=== PATIENT | female | born 2000 | race African-American/Black ===

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

== ENCOUNTER 2021-08-14 19:01 | Emergency (ER) | payer SELFPAY ==
[~2021-08-14] VITALS: Ht 152.4 cm; Wt 54.5 kg
[~2021-08-14 19:01] MED LIST changes: +PENI500T PO
[2021-08-14 20:20] VITALS: BP 127/62
[2021-08-14] MEDS: DEXAMETHASONE 4 MG TABLET PO ONE (21:25)
--- NOTE | 2021-08-14 21:36 | PHYS DOC ---
Past Medical History Past Medical History: No Pertinent History Past Surgical History: No Surgical History Smoking Status: Never Smoker Alcohol Use: None Drug Use: None General Adult EDM: Chief Complaint: OTHER COMPLAINTS HPI: HPI: Patient is a 20 year old female who presents with right neck lymph nodes pres ent for the last 2 days with a slightly sore throat. Patient denies fever, other recent illness, nausea, vomiting, diarrhea, chest pain, shortness of air, abdominal pain, body aches, cough, dizziness. Patient has no pain at this time. Review of Systems: Review of Systems: Constitutional: Denies fever or chills. [] Eyes: Denies change in visual acuity. [] HENT: Denies nasal congestion or +sore throat. [] Respiratory: Denies cough or shortness of breath. [] Cardiovascular: Denies chest pain or edema. [] GI: Denies abdominal pain, nausea, vomiting, bloody stools or diarrhea. [] : Denies dysuria. [] Musculoskeletal: Denies back pain or joint pain. [] Integument: Denies rash. + Right side slightly towards the back of the neck lymph nodes [] Neurologic: Denies headache, focal weakness or sensory changes. [] Endocrine: Denies polyuria or polydipsia. [] Lymphatic: Denies swollen glands. [] Psychiatric: Denies depression or anxiety. [] Heart Score: C/O Chest Pain: No Current Medications: Current Medications Medications (Trade) Dose Ordered Sig/Lali Start Time Stop Time Status Last Admin Dose Admin Dexamethasone (Decadron) 10 mg 1X ONCE 08/14/21 21:00 08/14/21 21:01 DC 08/14/21 21:25 10 MG Allergies: Allergies: Allergies Coded Allergies Type Severity Reaction Last Updated Verified No Known Drug Allergies 01/14/15 No Physical Exam: PE: Constitutional: Well developed, well nourished, no acute distress, non-toxic appearance. [] HENT: Normocephalic, atraumatic, bilateral external ears normal, oropharynx moist, no oral exudates, nose normal. Cervical lymph nodes swollen to the right side of neck. Slightly tender. [] Eyes: PERRLA, EOMI, conjunctiva normal, no discharge. [] Neck: Normal range of motion, no tenderness, supple, no stridor. [] Cardiovascular:Heart rate regular rhythm, no murmur [] Lungs & Thorax: Bilateral breath sounds clear to auscultation [] Abdomen: Bowel sounds normal, soft, no tenderness, no masses, no pulsatile masses. [] Skin: Warm, dry, no erythema, no rash. [] Back: No tenderness, no CVA tenderness. [] Extremities: No tenderness, no cyanosis, no clubbing, ROM intact, no edema. [] Neurologic: Alert and oriented X 3, normal motor function, normal sensory function, no focal deficits noted. [] Psychologic: Affect normal, judgement normal, mood normal. [] Current Patient Data: Vital Signs: Vital Signs Date Time Temp Pulse Resp B/P (MAP) Pulse Ox O2 Delivery O2 Flow Rate FiO2 08/14/21 20:20 98.2 85 16 127/62 (83) 100 Room Air 98.2 EKG: EKG: [] Radiology/Procedures: Radiology/Procedures: [] Course & Med Decision Making: Course & Med Decision Making Pertinent Labs and Imaging studies reviewed. (See chart for details) See HPI. Alert and oriented x4. Ambulatory steady gait. Speaks in full clear sentences. Swallowing saliva. Throat is pink without exudates or swelling. Uvula midline. No trismus. Lungs are clear station loose. She is afebrile. Abdomen soft and nontender. Bilateral tympanic's are white and intact. Patient is given a dose of Decadron in the ED. rapid strep negative. [] Dragon Disclaimer: Dragon Disclaimer: This electronic medical record was generated, in whole or in part, using a voice recognition dictation system. Departure Departure Impression: Primary Impression: Enlarged lymph node in neck Disposition: HOME / SELF CARE / HOMELESS Condition: STABLE Referrals: NO PCP (PCP) Patient Instructions: Medical Screening Exam Additional Instructions: Follow-up with primary care provider soon as possible. Drink plenty of fluids. If anything worsen she can always return to the emergency room. Take ibuprofen for pain. HÉCTOR JEFFERS FOOD SERVICE AIDE Aug 14, 2021 21:36
== END 2021-08-14 22:10 | disposition home or self-care (01) ==
LOC: ER 19:01
DX: R59.0 Localized enlarged lymph nodes (principal)
CPT/HCPCS: 87070; 87880; 99283